=== PATIENT | female | born 1970 | race Caucasian/White ===

== ENCOUNTER 2021-11-15 10:42 | Observation (INO) | payer OTHER ==
[2021-11-15] MEDS ORDERED: Aspirin 81 MG Tab.Chew PO ONE ×2 (11:04→11:55)
[2021-11-15] MEDS ORDERED: Nitroglycerin 0.4 MG Tab.SL SL PRN ×2 (11:04→17:15)
[2021-11-15] MEDS ORDERED: Sodium Chloride 0.9% 10 ML Syringe FLUSH PRN (11:04)
[2021-11-15] MEDS: Sodium Chloride 0.9% 1,000 ML IV SCH ×2 (11:56→22:39)
[2021-11-15] MEDS ORDERED: Ondansetron 4 MG/2 ML SDV IVPUSH ONE (12:09)
[2021-11-15] MEDS ORDERED: Magnesium Sulfate/Water 2 GM in Premix Bag 1 BAG IV ONE (14:19)
[2021-11-15] MEDS ORDERED: Iopamidol 755 Mg/ML 100 ML Bottle IV ONE (14:24)
[2021-11-15] MEDS ORDERED: Ondansetron 4 MG/2 ML SDV IV PRN (17:10)
[2021-11-15] MEDS ORDERED: Albuterol 8 GM Inhaler INH PRN (17:15)
[2021-11-15] MEDS: Carvedilol 6.25 MG Tab PO SCH (18:07)
[2021-11-15] MEDS: Formoterol/Mometasone 200-5 MCG 8.8 GM Inhaler IH SCH (20:21)
[2021-11-15] MEDS: Enoxaparin 40 MG/0.4 ML Syringe SUBCUT SCH (20:24)
[2021-11-15] MEDS: Magnesium Oxide 400 MG Tab PO SCH (20:28)
[2021-11-15] MEDS: Lisinopril 10 MG Tab PO SCH (20:28)
[2021-11-15] MEDS ORDERED: metFORMIN 1,000 MG Tab PO SCH (21:00)
[2021-11-15] MEDS ORDERED: Empagliflozin 10 MG Tab PO SCH (21:00)
[2021-11-16] MEDS: Acetaminophen 325 MG Tab PO PRN ×2 (06:24→20:50)
[2021-11-16] MEDS: Carvedilol 6.25 MG Tab PO SCH ×2 (08:54→18:10)
[2021-11-16] MEDS: Aspirin 81 MG Tab.Chew PO SCH (08:55)
[2021-11-16] MEDS: Furosemide 20 MG Tab PO SCH ×2 (08:55→14:16)
[2021-11-16] MEDS: Formoterol/Mometasone 200-5 MCG 8.8 GM Inhaler IH SCH ×2 (08:56→20:49)
[2021-11-16] MEDS: Lisinopril 10 MG Tab PO SCH ×2 (08:57→20:49)
[2021-11-16] MEDS ORDERED: Fluticasone NASAL Spray 16 GM Bottle NASBOTH SCH (09:00)
[2021-11-16] MEDS: Fluticasone NASAL Spray 16 GM Bottle NASBOTH SCH (09:07)
[2021-11-16] MEDS: Empagliflozin 10 MG Tab PO SCH (11:48)
[2021-11-16] MEDS: Citalopram 20 MG Tab PO SCH (11:48)
[2021-11-16] MEDS: Magnesium Oxide 400 MG Tab PO SCH (20:49)
[2021-11-16] MEDS: Enoxaparin 40 MG/0.4 ML Syringe SUBCUT SCH (20:50)
[2021-11-17] MEDS: Acetaminophen 325 MG Tab PO PRN ×2 (00:50→08:08)
[2021-11-17] MEDS: Aspirin 81 MG Tab.Chew PO SCH (08:07)
[2021-11-17] MEDS: Carvedilol 6.25 MG Tab PO SCH (08:07)
[2021-11-17] MEDS: Lisinopril 10 MG Tab PO SCH (08:07)
[2021-11-17] MEDS: Furosemide 20 MG Tab PO SCH (08:07)
[2021-11-17] MEDS: Empagliflozin 10 MG Tab PO SCH (08:07)
[2021-11-17] MEDS: Citalopram 20 MG Tab PO SCH (08:07)
[2021-11-17] MEDS: Formoterol/Mometasone 200-5 MCG 8.8 GM Inhaler IH SCH (08:08)
[2021-11-17] MEDS: Fluticasone NASAL Spray 16 GM Bottle NASBOTH SCH (08:08)
[2021-11-17] MEDS ORDERED: Non-Formulary Medication 1 Each (Citalopram Hydrobromide [Celexa] 40 MG Tablet) PO SCH (09:00)
[2021-11-17 12:12] VITALS: BP 99/63; PULSE 71
== END 2021-11-17 12:13 | disposition home or self-care (01) ==
LOC: FB.ED 10:42 → FB.MS 15:03
PROVIDERS: ADMIT Family Medicine; ATTEND Family Medicine
DX: R07.89 Other chest pain (principal); R11.2 Nausea with vomiting, unspecified; I42.8 Other cardiomyopathies; E83.42 Hypomagnesemia; I49.3 Ventricular premature depolarization; E78.00 Pure hypercholesterolemia, unspecified; I11.0 Hypertensive heart disease with heart failure; I50.22 Chronic systolic (congestive) heart failure; J45.909 Unspecified asthma, uncomplicated; M06.9 Rheumatoid arthritis, unspecified; E11.9 Type 2 diabetes mellitus without complications; I25.2 Old myocardial infarction; Z88.0 Allergy status to penicillin; Z20.822 Contact with and (suspected) exposure to COVID-19; Z79.82 Long term (current) use of aspirin; Z79.84 Long term (current) use of oral hypoglycemic drugs; Z79.899 Other long term (current) drug therapy; Z79.51 Long term (current) use of inhaled steroids; Z86.718 Personal history of other venous thrombosis and embolism; Z86.19 Personal history of other infectious and parasitic diseases; Z86.79 Personal history of other diseases of the circulatory system
CPT/HCPCS: 36415; 71045; 71275; 80048; 80053; 81001; 82947; 83735; 83880; 84484; 85025; 85379; 85610; 85730; 93005; 96374; 99217; 99219; 99225; 99285-25; A9270-GY; J1650; J2405; J3475; J3490; J7030; Q9967; U0002

== ENCOUNTER 2022-03-09 11:19 | Emergency (ER) | payer MEDICAID, OTHER ==
[2022-03-09 12:02] LABS: ESTIMATED GFR 78 mL/min (>60)
[2022-03-09 12:49] VITALS: BP 123/76; PULSE 75
== END 2022-03-09 13:08 | disposition home or self-care (01) ==
LOC: FB.ED 11:19
DX: I11.0 Hypertensive heart disease with heart failure (principal); I50.9 Heart failure, unspecified; E78.00 Pure hypercholesterolemia, unspecified; E11.9 Type 2 diabetes mellitus without complications; Z88.0 Allergy status to penicillin; Z79.82 Long term (current) use of aspirin; Z79.84 Long term (current) use of oral hypoglycemic drugs; Z86.16 Personal history of COVID-19
CPT/HCPCS: 36415; 71045; 80053; 83735; 83880; 84484; 85025; 85610; 85730; 93005; 99285

== ENCOUNTER 2022-06-18 22:43 | Emergency (ER) | payer BC, MEDICAID ==
[2022-06-18] MEDS ORDERED: Aspirin 81 MG Tab.Chew PO ONE (23:17)
[2022-06-18 23:21] LABS: ESTIMATED GFR 61 mL/min (>60)
[2022-06-19 00:42] VITALS: BP 108/65; PULSE 63
== END 2022-06-19 00:15 | disposition home or self-care (01) ==
LOC: FB.ED 22:43
DX: R07.89 Other chest pain (principal); E78.00 Pure hypercholesterolemia, unspecified; I11.0 Hypertensive heart disease with heart failure; I50.9 Heart failure, unspecified; E11.9 Type 2 diabetes mellitus without complications; Z88.0 Allergy status to penicillin; Z79.82 Long term (current) use of aspirin; Z79.84 Long term (current) use of oral hypoglycemic drugs
CPT/HCPCS: 36415; 71045; 80053; 84484; 85025; 85610; 85730; 93005; 99285; A9270-GY

== ENCOUNTER 2022-12-30 14:33 | Inpatient (IN) | payer BC ==
[2022-12-30] MEDS ORDERED: Sodium Chloride 0.9% 10 ML Syringe FLUSH PRN (14:48)
[2022-12-30] MEDS ORDERED: Ondansetron 4 MG/2 ML SDV IVPUSH ONE (14:48)
[2022-12-30] MEDS ORDERED: Morphine 4 MG/ML VIAL IVPUSH ONE (14:48)
[2022-12-30] MEDS ORDERED: Sodium Chloride 0.9% 1,000 ML IV SCH (15:00)
[2022-12-30 15:04] LABS: BASOPHILS PERCENT AUTO 0.4 % (0.2-1.5); EOSINOPHILS PERCENT AUTO 0.4 % (0.6-8.1); HEMATOCRIT 36.3 % (34.2-48.2); HEMOGLOBIN 12.1 g/dL (11.4-15.5); LYMPHOCYTES ABSOLUTE AUTO 2.7 x10-3/uL (1.0-4.4); MEAN CORPUSCULAR HEMOGLOBIN 31.9 pg (23.9-33.9); MEAN CORPUSCULAR HGB CONC 33.4 g/dL (31.9-34.8); MEAN CORPUSCULAR VOLUME 95.5 fL (76.7-100.5); MEAN PLATELET VOLUME 7.3 fL (7.1-12.4); MONOCYTES ABSOLUTE AUTO 0.5 x10-3/uL (0.3-1.0); MONOCYTES PERCENT AUTO 7.9 % (4.4-15.7); NEUTROPHILS ABSOLUTE AUTO 3.2 x10-3/uL (1.5-6.3); NEUTROPHILS PERCENT AUTO 49.3 % (30.8-76.2); PLATELET COUNT,PLT 277 x10(3)uL (151-488); RED CELL DISTRIBUTION WIDTH 13.4 % (12.3-16.5); WHITE BLOOD CELL COUNT,WBC 6.5 x10-3/uL (3.0-10.3)
[2022-12-30 15:07] LABS: BLOOD UREA NITROGEN,BUN 24 mg/dL (7-18); BUN/CREATININE RATIO 17.1 (9-20); CALCIUM 9.1 mg/dL (8.6-10.2); CARBON DIOXIDE,CO2 25 mmol/L (21-32); CHLORIDE,CL 99 mmol/L (100-110); CREATININE 1.4 mg/dL (0.55-1.02); EST CRCL DRUG DOSING (CG) 46.23 mL/min; ESTIMATED GFR 46 mL/min (>60); GLUCOSE RANDOM 164 mg/dL (80-116); POTASSIUM,K 4.3 mmol/L (3.5-5.3); SODIUM,NA 136 mmol/L (135-145)
[2022-12-30 15:12] LABS: A/G RATIO 1.6; ALANINE AMINOTRANSFERASE,ALT 70 U/L (12-36); ALBUMIN 4.2 g/dL (3.5-5.2); ALKALINE PHOSPHATASE 83 IU/L (56-112); AMYLASE 114 U/L (25-115); ASPARTATE AMNIOTRANSFERASE,AST 104 IU/L (5-25); BILIRUBIN TOTAL 0.4 mg/dL (0.1-1.3); PROTEIN TOTAL,TP 6.9 g/dL (6.0-8.0)
[2022-12-30 15:19] LABS: PRO B-TYPE NATRIUR PEPT,BNPPRO 17 pg/mL (<=125)
[2022-12-30 15:20] LABS: TROPONIN I < 4.0 pg/mL (4.0-60.3)
[2022-12-30] MEDS ORDERED: Iopamidol 755 Mg/ML 100 ML Bottle IV ONE (15:58)
[2022-12-30 16:11] LABS: APPEARANCE,URINE CLEAR (CLEAR); BACTERIA,URINE FEW (NS); BILIRUBIN,URINE NEGATIVE (NEGATIVE); COLOR,URINE YELLOW (YELLOW); GLUCOSE,URINE >1000 mg/dL (NORMAL); KETONES,URINE NEGATIVE (NEGATIVE); LEUKOCYTE ESTERASE,URINE NEGATIVE (NEGATIVE); NITRITE,URINE NEGATIVE (NEGATIVE); OCCULT BLOOD,URINE NEGATIVE (NEGATIVE); PROTEIN,URINE NEGATIVE (NEGATIVE); RBC,URINE 0-5 (0-5); SQUAMOUS EPITHELIAL CELLS,UR FEW (NS,R,O); UROBILINOGEN,URINE NORMAL (NEGATIVE); WBC,URINE 0-5 (0-5)
[2022-12-30] MEDS ORDERED: Ondansetron 4 MG/2 ML SDV IV PRN (17:31)
[2022-12-30] MEDS ORDERED: Acetaminophen 325 MG Tab PO PRN (17:31)
[2022-12-30] MEDS ORDERED: Albuterol 8 GM Inhaler INH PRN (17:44)
[2022-12-30] MEDS ORDERED: Midodrine 5 MG Tab PO PRN (17:44)
[2022-12-30] MEDS ORDERED: Nitroglycerin 0.4 MG Tab.SL SL PRN (17:44)
[2022-12-30] MEDS: Sodium Chloride 0.9% 1,000 ML IV SCH (18:13)
[2022-12-30] MEDS: Enoxaparin 40 MG/0.4 ML Syringe SUBCUT SCH (18:17)
[2022-12-30] MEDS: Carvedilol 25 MG Tab PO SCH (20:38)
[2022-12-30] MEDS: Morphine 2 MG/ML SYRINGE IVPUSH PRN (20:42)
[2022-12-30] MEDS: SACUBITRIL PO SCH (20:42)
[2022-12-30] MEDS: VALSARTAN PO SCH (20:42)
[2022-12-30] MEDS ORDERED: Formoterol/Mometasone 200-5 MCG 8.8 GM Inhaler IH SCH (21:00)
[2022-12-30] MEDS ORDERED: Fluticasone NASAL Spray 16 GM Bottle NASBOTH SCH (21:00)
[2022-12-31] MEDS: Morphine 2 MG/ML SYRINGE IVPUSH PRN ×4 (01:28→16:07)
[2022-12-31] MEDS: Sodium Chloride 0.9% 1,000 ML IV SCH ×2 (04:25→14:52)
[2022-12-31 06:45] LABS: BASOPHILS PERCENT AUTO 0.3 % (0.2-1.5); EOSINOPHILS PERCENT AUTO 1.1 % (0.6-8.1); HEMATOCRIT 34.7 % (34.2-48.2); HEMOGLOBIN 11.6 g/dL (11.4-15.5); LYMPHOCYTES ABSOLUTE AUTO 1.1 x10-3/uL (1.0-4.4); LYMPHOCYTES PERCENT AUTO 28.2 % (18.4-52.1); MEAN CORPUSCULAR HEMOGLOBIN 32.1 pg (23.9-33.9); MEAN CORPUSCULAR HGB CONC 33.4 g/dL (31.9-34.8); MEAN CORPUSCULAR VOLUME 96.1 fL (76.7-100.5); MEAN PLATELET VOLUME 7.6 fL (7.1-12.4); MONOCYTES ABSOLUTE AUTO 0.3 x10-3/uL (0.3-1.0); NEUTROPHILS ABSOLUTE AUTO 2.4 x10-3/uL (1.5-6.3); NEUTROPHILS PERCENT AUTO 61.4 % (30.8-76.2); PLATELET COUNT,PLT 227 x10(3)uL (151-488); RED BLOOD CELL COUNT 3.61 x10(6)uL (3.60-5.20); RED CELL DISTRIBUTION WIDTH 13.1 % (12.3-16.5); WHITE BLOOD CELL COUNT,WBC 3.9 x10-3/uL (3.0-10.3)
[2022-12-31 07:07] LABS: A/G RATIO 1.4; ALBUMIN 3.6 g/dL (3.5-5.2); ALKALINE PHOSPHATASE 183 IU/L (56-112); BILIRUBIN TOTAL 0.9 mg/dL (0.1-1.3); BLOOD UREA NITROGEN,BUN 15 mg/dL (7-18); CALCIUM 8.7 mg/dL (8.6-10.2); CARBON DIOXIDE,CO2 28 mmol/L (21-32); CHLORIDE,CL 106 mmol/L (100-110); EST CRCL DRUG DOSING (CG) 57.47 mL/min; ESTIMATED GFR 68 mL/min (>60); GLUCOSE RANDOM 99 mg/dL (80-116); POTASSIUM,K 4.1 mmol/L (3.5-5.3); PROTEIN TOTAL,TP 6.2 g/dL (6.0-8.0); SODIUM,NA 140 mmol/L (135-145)
[2022-12-31 07:15] LABS: ALANINE AMINOTRANSFERASE,ALT 1941 U/L (12-36)
[2022-12-31 08:18] LABS: ASPARTATE AMNIOTRANSFERASE,AST 2563 IU/L (5-25)
[2022-12-31] MEDS: Carvedilol 25 MG Tab PO SCH ×2 (08:51→20:46)
[2022-12-31] MEDS: Spironolactone 25 MG Tab PO SCH (08:51)
[2022-12-31] MEDS: Citalopram 20 MG Tab PO SCH (08:51)
[2022-12-31] MEDS: Formoterol/Mometasone 200-5 MCG 8.8 GM Inhaler IH SCH ×2 (08:52→20:44)
[2022-12-31] MEDS: Fluticasone NASAL Spray 16 GM Bottle NASBOTH SCH ×2 (08:53→20:45)
[2022-12-31] MEDS: Aspirin 81 MG Tab.EC PO SCH (08:53)
[2022-12-31] MEDS: Multivitamin Tab PO SCH (08:54)
[2022-12-31] MEDS: VALSARTAN PO SCH ×2 (08:54→20:47)
[2022-12-31] MEDS: SACUBITRIL PO SCH ×2 (08:54→20:47)
[2022-12-31] MEDS ORDERED: Empagliflozin 10 MG Tab PO SCH (09:00)
[2022-12-31] MEDS ORDERED: Non-Formulary Medication 1 Each (Liraglutide [Victoza] 18 MG/3 ML Pen) SUBCUT SCH (09:00)
[2022-12-31] MEDS ORDERED: Iopamidol 755 Mg/ML 100 ML Bottle IV SCH (11:30)
[2022-12-31 11:47] LABS: BLOOD UREA NITROGEN,BUN 14 mg/dL (7-18); BUN/CREATININE RATIO 17.5 (9-20); CALCIUM 8.6 mg/dL (8.6-10.2); CARBON DIOXIDE,CO2 26 mmol/L (21-32); CHLORIDE,CL 104 mmol/L (100-110); CREATININE 0.8 mg/dL (0.55-1.02); EST CRCL DRUG DOSING (CG) 71.84 mL/min; ESTIMATED GFR 89 mL/min (>60); GLUCOSE RANDOM 123 mg/dL (80-116); INR 0.99 (1.00-1.24); POTASSIUM,K 4.4 mmol/L (3.5-5.3); PROTHROMBIN TIME 10.2 sec (9.0-11.1); SODIUM,NA 138 mmol/L (135-145)
[2022-12-31 11:51] LABS: BILIRUBIN DIRECT 0.52 mg/dL (0.10-0.20); BILIRUBIN INDIRECT 0.5 mg/dL (0.0-1.0)
[2022-12-31 12:05] LABS: A/G RATIO 1.4; ALBUMIN 3.5 g/dL (3.5-5.2); ALKALINE PHOSPHATASE 187 IU/L (56-112); BILIRUBIN TOTAL 0.9 mg/dL (0.1-1.3)
[2022-12-31 12:07] LABS: ALANINE AMINOTRANSFERASE,ALT 1816 U/L (12-36)
[2022-12-31 12:08] LABS: ASPARTATE AMNIOTRANSFERASE,AST 1611 IU/L (5-25)
[2022-12-31] MEDS: Enoxaparin 40 MG/0.4 ML Syringe SUBCUT SCH ×2 (16:46→17:18)
[2022-12-31] MEDS: Magnesium Oxide 400 MG Tab PO SCH (20:47)
[2023-01-01] MEDS: Sodium Chloride 0.9% 1,000 ML IV SCH (00:52)
[2023-01-01 06:06] LABS: BASOPHILS PERCENT AUTO 0.6 % (0.2-1.5); EOSINOPHILS ABSOLUTE AUTO 0.1 x10-3/uL (0.0-0.8); EOSINOPHILS PERCENT AUTO 1.6 % (0.6-8.1); HEMOGLOBIN 11.3 g/dL (11.4-15.5); LYMPHOCYTES ABSOLUTE AUTO 1.3 x10-3/uL (1.0-4.4); LYMPHOCYTES PERCENT AUTO 33.5 % (18.4-52.1); MEAN CORPUSCULAR HGB CONC 33.2 g/dL (31.9-34.8); MEAN CORPUSCULAR VOLUME 96.4 fL (76.7-100.5); MEAN PLATELET VOLUME 7.1 fL (7.1-12.4); MONOCYTES ABSOLUTE AUTO 0.3 x10-3/uL (0.3-1.0); NEUTROPHILS ABSOLUTE AUTO 2.2 x10-3/uL (1.5-6.3); NEUTROPHILS PERCENT AUTO 56.3 % (30.8-76.2); PLATELET COUNT,PLT 211 x10(3)uL (151-488); RED BLOOD CELL COUNT 3.53 x10(6)uL (3.60-5.20); RED CELL DISTRIBUTION WIDTH 13.1 % (12.3-16.5)
[2023-01-01 06:17] LABS: INR 1.01 (1.00-1.24); PROTHROMBIN TIME 10.4 sec (9.0-11.1)
[2023-01-01 06:35] LABS: A/G RATIO 1.3; ALBUMIN 3.3 g/dL (3.5-5.2); ALKALINE PHOSPHATASE 174 IU/L (56-112); BILIRUBIN DIRECT 0.15 mg/dL (0.10-0.20); BILIRUBIN INDIRECT 0.4 mg/dL (0.0-1.0); BILIRUBIN TOTAL 0.5 mg/dL (0.1-1.3); BLOOD UREA NITROGEN,BUN 13 mg/dL (7-18); BUN/CREATININE RATIO 14.4 (9-20); CALCIUM 8.5 mg/dL (8.6-10.2); CARBON DIOXIDE,CO2 24 mmol/L (21-32); CHLORIDE,CL 106 mmol/L (100-110); CREATININE 0.9 mg/dL (0.55-1.02); EST CRCL DRUG DOSING (CG) 63.86 mL/min; ESTIMATED GFR 77 mL/min (>60); GLUCOSE RANDOM 93 mg/dL (80-116); POTASSIUM,K 4.2 mmol/L (3.5-5.3); PROTEIN TOTAL,TP 5.9 g/dL (6.0-8.0); SODIUM,NA 140 mmol/L (135-145)
[2023-01-01 06:36] LABS: ALANINE AMINOTRANSFERASE,ALT 1197 U/L (12-36); ASPARTATE AMNIOTRANSFERASE,AST 504 IU/L (5-25)
[2023-01-01] MEDS: Formoterol/Mometasone 200-5 MCG 8.8 GM Inhaler IH SCH ×2 (08:44→20:30)
[2023-01-01] MEDS: Spironolactone 25 MG Tab PO SCH (08:45)
[2023-01-01] MEDS: Multivitamin Tab PO SCH (08:45)
[2023-01-01] MEDS: Fluticasone NASAL Spray 16 GM Bottle NASBOTH SCH ×2 (08:45→20:31)
[2023-01-01] MEDS: Aspirin 81 MG Tab.EC PO SCH (08:46)
[2023-01-01] MEDS: VALSARTAN PO SCH ×2 (08:46→20:31)
[2023-01-01] MEDS: Citalopram 20 MG Tab PO SCH (08:46)
[2023-01-01] MEDS: SACUBITRIL PO SCH ×2 (08:46→20:31)
[2023-01-01] MEDS: Carvedilol 25 MG Tab PO SCH ×2 (08:48→20:32)
[2023-01-01 12:08] LABS: HBSAG SCREEN Negative (Negative); HCV AB Non Reactive (Non Reactive); HEP A AB, IGM Negative (Negative); HEP B CORE AB, IGM Negative (Negative)
[2023-01-01] MEDS: Enoxaparin 40 MG/0.4 ML Syringe SUBCUT SCH (17:03)
[2023-01-01] MEDS: Magnesium Oxide 400 MG Tab PO SCH (20:32)
[2023-01-02] MEDS: Formoterol/Mometasone 200-5 MCG 8.8 GM Inhaler IH SCH (08:42)
[2023-01-02] MEDS: Fluticasone NASAL Spray 16 GM Bottle NASBOTH SCH (08:42)
[2023-01-02] MEDS: VALSARTAN PO SCH (08:44)
[2023-01-02] MEDS: SACUBITRIL PO SCH (08:44)
[2023-01-02] MEDS: Spironolactone 25 MG Tab PO SCH (08:45)
[2023-01-02] MEDS: Carvedilol 25 MG Tab PO SCH (08:46)
[2023-01-02] MEDS: Citalopram 20 MG Tab PO SCH (08:46)
[2023-01-02] MEDS: Aspirin 81 MG Tab.EC PO SCH (08:48)
[2023-01-02] MEDS: Multivitamin Tab PO SCH (08:48)
[2023-01-02 08:49] VITALS: BP 98/47; PULSE 65
[2023-01-02 10:27] LABS: BASOPHILS PERCENT AUTO 0.6 % (0.2-1.5); EOSINOPHILS ABSOLUTE AUTO 0.1 x10-3/uL (0.0-0.8); MEAN PLATELET VOLUME 8.3 fL (7.1-12.4); PLATELET COUNT,PLT 276 x10(3)uL (151-488)
[2023-01-02 10:29] LABS: BASOPHILS ABSOLUTE AUTO 0.1 x10-3/uL (0.0-0.1); HEMATOCRIT 39.6 % (34.2-48.2); HEMOGLOBIN 13.3 g/dL (11.4-15.5); LYMPHOCYTES ABSOLUTE AUTO 2.2 x10-3/uL (1.0-4.4); LYMPHOCYTES PERCENT AUTO 26.2 % (18.4-52.1); MEAN CORPUSCULAR HEMOGLOBIN 32.4 pg (23.9-33.9); MEAN CORPUSCULAR HGB CONC 33.5 g/dL (31.9-34.8); MEAN CORPUSCULAR VOLUME 96.6 fL (76.7-100.5); MONOCYTES ABSOLUTE AUTO 0.8 x10-3/uL (0.3-1.0); MONOCYTES PERCENT AUTO 9.1 % (4.4-15.7); NEUTROPHILS ABSOLUTE AUTO 5.3 x10-3/uL (1.5-6.3); NEUTROPHILS PERCENT AUTO 63.1 % (30.8-76.2); RED CELL DISTRIBUTION WIDTH 13.3 % (12.3-16.5); WHITE BLOOD CELL COUNT,WBC 9.4 x10-3/uL (3.0-10.3)
[2023-01-02 10:35] LABS: INR 0.95 (1.00-1.24); PROTHROMBIN TIME 9.8 sec (9.0-11.1)
[2023-01-02 10:44] LABS: A/G RATIO 1.2; ALKALINE PHOSPHATASE 178 IU/L (56-112); BILIRUBIN TOTAL 0.4 mg/dL (0.1-1.3); BLOOD UREA NITROGEN,BUN 14 mg/dL (7-18); CALCIUM 9.4 mg/dL (8.6-10.2); CARBON DIOXIDE,CO2 27 mmol/L (21-32); CHLORIDE,CL 101 mmol/L (100-110); EST CRCL DRUG DOSING (CG) 57.47 mL/min; ESTIMATED GFR 68 mL/min (>60); GLUCOSE RANDOM 276 mg/dL (80-116); POTASSIUM,K 4.6 mmol/L (3.5-5.3); PROTEIN TOTAL,TP 7.3 g/dL (6.0-8.0); SODIUM,NA 136 mmol/L (135-145)
[2023-01-02 10:47] LABS: ALANINE AMINOTRANSFERASE,ALT 862 U/L (12-36); ASPARTATE AMNIOTRANSFERASE,AST 171 IU/L (5-25)
[2023-01-04] MEDS ORDERED: ABATACEPT 125 MG/ML SQ SCH (17:44)
[2023-01-04] MEDS ORDERED: Non-Formulary Medication 1 Each (Semaglutide [Ozempic] 1 MG/0.75 ML Pen.Injctr) SQ SCH (17:44)
[2023-01-04] MEDS ORDERED: AUTO INJCT SQ SCH (17:44)
== END 2023-01-02 11:30 | disposition home or self-care (01) | DRG 282 ==
LOC: FB.ED 14:33 → FB.MS 17:31
PROVIDERS: ADMIT Student in an Organized Health Care Education/Training Program; ATTEND Family Medicine
DX: K85.90 Acute pancreatitis without necrosis or infection, unspecified (principal); B17.9 Acute viral hepatitis, unspecified; E11.9 Type 2 diabetes mellitus without complications; H40.9 Unspecified glaucoma; I11.0 Hypertensive heart disease with heart failure; I42.9 Cardiomyopathy, unspecified; E78.00 Pure hypercholesterolemia, unspecified; G47.33 Obstructive sleep apnea (adult) (pediatric); J45.909 Unspecified asthma, uncomplicated; F41.9 Anxiety disorder, unspecified; F32.A Depression, unspecified; I50.22 Chronic systolic (congestive) heart failure; Z86.19 Personal history of other infectious and parasitic diseases; Z79.84 Long term (current) use of oral hypoglycemic drugs; Z79.899 Other long term (current) drug therapy; Z79.82 Long term (current) use of aspirin; Z90.49 Acquired absence of other specified parts of digestive tract; Z86.718 Personal history of other venous thrombosis and embolism; I25.2 Old myocardial infarction; Z56.0 Unemployment, unspecified
CPT/HCPCS: 36415; 74174; 74177; 80053; 80074; 80143; 81001; 82150; 82247; 82248; 82947; 83690; 83735; 83880; 84484; 85025; 85610; 93005; 93010; 96361; 96374; 96375; 99222; 99232; 99238; 99284; 99285-25; A9270-GY; J1650; J2270; J2405; J3490; J7030; Q9967

== ENCOUNTER 2023-11-02 14:14 | Emergency (ER) | payer BC ==
[2023-11-02 14:36] VITALS: PULSE 55
[2023-11-02] MEDS ORDERED: Sodium Chloride 0.9% 10 ML Syringe FLUSH PRN (15:13)
[2023-11-02 15:22] LABS: BASOPHILS ABSOLUTE AUTO 0.1 x10-3/uL (0.0-0.1); BASOPHILS PERCENT AUTO 0.7 % (0.2-1.5); EOSINOPHILS ABSOLUTE AUTO 0.1 x10-3/uL (0.0-0.8); EOSINOPHILS PERCENT AUTO 1.5 % (0.6-8.1); HEMATOCRIT 38.7 % (34.2-48.2); HEMOGLOBIN 12.8 g/dL (11.4-15.5); LYMPHOCYTES ABSOLUTE AUTO 2.8 x10-3/uL (1.0-4.4); MEAN CORPUSCULAR HGB CONC 33.1 g/dL (31.9-34.8); MEAN CORPUSCULAR VOLUME 96.7 fL (76.7-100.5); MEAN PLATELET VOLUME 8.1 fL (7.1-12.4); MONOCYTES ABSOLUTE AUTO 0.6 x10-3/uL (0.3-1.0); MONOCYTES PERCENT AUTO 7.6 % (4.4-15.7); NEUTROPHILS ABSOLUTE AUTO 4.2 x10-3/uL (1.5-6.3); NEUTROPHILS PERCENT AUTO 54.2 % (30.8-76.2); PLATELET COUNT,PLT 271 x10(3)uL (151-488); RED CELL DISTRIBUTION WIDTH 13.1 % (12.3-16.5); WHITE BLOOD CELL COUNT,WBC 7.7 x10-3/uL (3.0-10.3)
[2023-11-02 15:24] LABS: BLOOD UREA NITROGEN,BUN 20 mg/dL (7-18); BUN/CREATININE RATIO 18.2 (9-20); CALCIUM 9.1 mg/dL (8.6-10.2); CARBON DIOXIDE,CO2 26 mmol/L (21-32); CHLORIDE,CL 102 mmol/L (100-110); CREATININE 1.1 mg/dL (0.55-1.02); EST CRCL DRUG DOSING (CG) 58.18 mL/min; ESTIMATED GFR 60 mL/min (>60); GLUCOSE RANDOM 163 mg/dL (80-116); POTASSIUM,K 4.5 mmol/L (3.5-5.3); SODIUM,NA 137 mmol/L (135-145)
[2023-11-02] MEDS: Aspirin 81 MG Tab.Chew PO ONE (15:27)
[2023-11-02 15:30] LABS: A/G RATIO 1.4; ALANINE AMINOTRANSFERASE,ALT 24 U/L (12-36); ALBUMIN 4.2 g/dL (3.5-5.2); ALKALINE PHOSPHATASE 65 IU/L (56-112); ASPARTATE AMNIOTRANSFERASE,AST 10 IU/L (5-25); BILIRUBIN TOTAL 0.3 mg/dL (0.1-1.3); MAGNESIUM 2.4 mg/dL (1.8-2.5); PROTEIN TOTAL,TP 7.3 g/dL (6.0-8.0)
[2023-11-02 15:32] LABS: C-REACTIVE PROTEIN < 0.50 mg/dL (<0.50); TROPONIN I < 4.0 pg/mL (4.0-60.3)
[2023-11-02 16:41] VITALS: BP 126/74
[2023-11-02] MEDS: Nitroglycerin 0.4 MG Tab.SL SL PRN (16:41)
[2023-11-02] MEDS: Sodium Chloride 0.9% 1,000 ML IV SCH (16:41)
[2023-11-02] MEDS ORDERED: Naloxone 0.4 MG/ML SDV IVPUSH PRN (17:54)
[2023-11-02] MEDS: Ondansetron 4 MG/2 ML SDV IVPUSH ONE (18:13)
[2023-11-02] MEDS: Morphine 4 MG/ML VIAL IVPUSH ONE (18:13)
[2023-11-02] MEDS: Metoclopramide 10 MG/2 ML SDV IVPUSH ONE (19:45)
[2023-11-02] MEDS: Iopamidol 755 Mg/ML 100 ML Bottle IV ONE (20:09)
[2023-11-02 23:58] LABS: INR 0.99 (1.00-1.24); PROTHROMBIN TIME 10.3 sec (9.0-11.1); PTT,PARTIAL THROMBOPLSTIN TIME 20.9 SECONDS (24.4-33.2)
[2023-11-03] MEDS: Heparin Sodium 5,000 Units/ML Vial IVPUSH ONE (00:26)
[2023-11-03] MEDS: Heparin Sodium/0.45% NaCl 500 ML IV SCH (00:26)
[2023-11-03] MEDS: Nitroglycerin/D5W 25 MG/250 ML BOTTLE IV SCH (00:35)
== END 2023-11-03 00:56 ==
LOC: FB.ED 14:14
DX: I24.9 Acute ischemic heart disease, unspecified (principal); E11.69 Type 2 diabetes mellitus with other specified complication; E66.9 Obesity, unspecified; I11.0 Hypertensive heart disease with heart failure; I50.9 Heart failure, unspecified; E78.00 Pure hypercholesterolemia, unspecified; I25.2 Old myocardial infarction; J45.909 Unspecified asthma, uncomplicated; Z88.0 Allergy status to penicillin; Z86.19 Personal history of other infectious and parasitic diseases; Z86.16 Personal history of COVID-19; Z90.49 Acquired absence of other specified parts of digestive tract; Z68.26 Body mass index [BMI] 26.0-26.9, adult; Z79.84 Long term (current) use of oral hypoglycemic drugs; Z79.82 Long term (current) use of aspirin; Z79.51 Long term (current) use of inhaled steroids; Z79.899 Other long term (current) drug therapy
CPT/HCPCS: 36415; 71045; 74177; 80053; 83690; 83735; 83880; 84484; 85025; 85379; 85610; 85730; 86140; 93005; 93010; 96361; 96365; 96368; 96375; 99285; A9270; J1644; J2270; J2305; J2405; J2765; J7030; Q9967